=== PATIENT | male | born 1965 | race Caucasian/White ===

== ENCOUNTER 2018-02-07 14:27 | Emergency (ER) | END 2018-02-07 20:46 | disposition home or self-care (01) ==

== ENCOUNTER 2018-09-16 21:28 | Emergency (ER) | payer OTHER ==
[~2018-09-16] VITALS: Ht 193 cm; Wt 204.0 kg
[~2018-09-16 21:28] MED LIST: ACET500C5 PO; BACTDS PO; CEPH-443 PO
[2018-09-16 21:41] VITALS: Ht 193 cm; Wt 204.0 kg
[2018-09-16] MEDS ORDERED: ONDANSETRON 4 MG INJ IV STA (22:28)
[2018-09-16] MEDS ORDERED: morphine 4 MG/ML VIAL IV STA (22:28)
[2018-09-16] MEDS ORDERED: SOD CHLORIDE 0.9% 500 ML IV STA (22:28)
[2018-09-17] MEDS ORDERED: HYDROmorphONE 0.5 MG/0.5 ML SYG IV STA (00:10)
--- NOTE | 2018-09-17 00:53 | ERD ---
ER Documentation Chief Complaint Chief Complaint FLANK PAIN WITH HEMATURIA AND PENILE DISCHARGE X 2 DAYS HPI 53-year-old male with flank pain with hematuria for the past 2 days. No nausea vomiting or chills. Pain is mild to moderate intensity. Pain is colicky in nature. No other current complaints. Patient does have history of previous kidney stones and says this feels very similar to previous history of kidney stones. Denies any other current issues ROS All systems reviewed and are negative except as per history of present illness. Medications Home Meds Active Scripts Acetaminophen* (Tylophen*) 500 Mg Capsule, 1 CAP PO Q6H PRN for PAIN AND OR ELEVATED TEMP, #20 CAP Prov:TRACEY LOCKETT. TREASURER 02/07/18 Cephalexin* (Keflex*) 500 Mg Capsule, 500 MG PO QID for 7 Days, CAP Prov:EILEEN JOHNSONP S. 07/25/14 Sulfamethoxazole-Trimethoprim* (Bactrim* DS) 800-160 Mg Tab, 1 TAB PO BID for 7 Days, TAB Prov:ROSELIA JOHNSON S. 07/25/14 Allergies Allergies: Coded Allergies: ibuprofen (Verified Allergy, Mild, rash, redness all over the body, 07/24/14) vancomycin (Unverified Allergy, Mild, rash and itching, 07/24/14) PMhx/Soc History of Surgery: No Anesthesia Reaction: No Hx Neurological Disorder: No Hx Respiratory Disorders: Yes (asthma) Hx Cardiac Disorders: No Hx Psychiatric Problems: No Hx Miscellaneous Medical Probl: No Hx Alcohol Use: No Hx Substance Use: No (marijuana former use) Hx Tobacco Use: No Smoking Status: Never smoker Physical Exam Vitals Vital Signs Date Temp Pulse Resp B/P (MAP) Pulse Ox O2 O2 Flow FiO2 Time Delivery Rate 09/16/18 99.0 100 18 168/100 98 21:41 (122) Physical Exam Const: No acute distress Head: Atraumatic Eyes: Normal Conjunctiva ENT: Normal External Ears, Nose and Mouth. Neck: Full range of motion. No meningismus. Resp: Clear to auscultation bilaterally Cardio: Regular rate and rhythm, no murmurs Abd: Soft, non tender, non distended. Normal bowel sounds Skin: No petechiae or rashes Back: No midline or flank tenderness Ext: No cyanosis, or edema Neur: Awake and alert Psych: Normal Mood and Affect Result Diagram: 09/16/18223109/16/182232 Results 24 hrs Laboratory Tests Test 09/16/18 22:32 09/16/18 22:33 09/16/18 22:44 White Blood Count 9.0 10^3/ul Red Blood Count 4.50 10^6/ul Hemoglobin 13.1 g/dl Hematocrit 43.0 % Mean Corpuscular Volume 95.6 fl Mean Corpuscular Hemoglobin 29.1 pg Mean Corpuscular 30.5 g/dl Hemoglobin Concent Red Cell Distribution Width 13.3 % Platelet Count 158 10^3/UL Mean Platelet Volume 11.8 fl Immature Granulocytes % 0.600 % Neutrophils % 69.4 % Lymphocytes % 16.4 % Monocytes % 9.3 % Eosinophils % 3.9 % Basophils % 0.4 % Nucleated Red Blood Cells % 0.0 /100WBC Immature Granulocytes # 0.050 10^3/ul Neutrophils # 6.2 10^3/ul Lymphocytes # 1.5 10^3/ul Monocytes # 0.8 10^3/ul Eosinophils # 0.4 10^3/ul Basophils # 0.0 10^3/ul Nucleated Red Blood Cells # 0.0 10^3/ul Sodium Level 138 mmol/L Potassium Level 5.0 mmol/L Chloride Level 87 mmol/L Carbon Dioxide Level 39 mmol/L Anion Gap 12 Blood Urea Nitrogen 19 mg/dl Creatinine 0.99 mg/dl Est Glomerular Filtrat > 60 mL/min Rate mL/min Glucose Level 124 mg/dl Calcium Level 9.1 mg/dl Total Bilirubin 0.1 mg/dl Direct Bilirubin 0.00 mg/dl Indirect Bilirubin 0.1 mg/dl Aspartate Amino 15 IU/L Transf (AST/SGOT) Alanine 10 IU/L Aminotransferase (ALT/SGPT) Alkaline Phosphatase 44 IU/L Total Protein 7.7 g/dl Albumin 3.8 g/dl Globulin 3.90 g/dl Albumin/Globulin Ratio 0.97 Lipase 85 U/L Urine Color YELLOW Urine Clarity SLIGHTLY CLOUDY Urine pH 6.0 Urine Specific Hansen 1.018 Urine Ketones NEGATIVE mg/dL Urine Nitrite NEGATIVE mg/dL Urine Bilirubin NEGATIVE mg/dL Urine Urobilinogen NEGATIVE mg/dL Urine Leukocyte Esterase TRACE Valeria/ul Urine Microscopic RBC > 182 /HPF Urine Microscopic WBC 7 /HPF Urine Squamous Epithelial Cells FEW /HPF Urine Bacteria FEW /HPF Urine Hemoglobin 3+ mg/dL Urine Glucose NEGATIVE mg/dL Urine Total Protein 1+ mg/dl Current Medications Medications Dose Sig/Jesus Alberto Start Time Status Last (Trade) Ordered Route PRN Stop Time Admin Dose Reason Admin Sodium 500 ml @ Q1H STAT 09/16/18 DC 09/16/18 Chloride 500 mls/hr IV 22:28 22:39 09/16/18 23:27 Morphine 4 mg ONCE STAT 09/16/18 DC 09/16/18 Sulfate IV 22:28 22:35 (morphine) 09/16/18 22:31 Ondansetron 4 mg ONCE STAT 09/16/18 DC 09/16/18 HCl (Zofran IV 22:28 22:34 Inj) 09/16/18 22:31 1 mg ONCE STAT 09/17/18 DC 09/17/18 Hydromorphone IV 00:10 00:15 HCl 09/17/18 00:11 (Dilaudid) Procedures/MDM Medical decision make: 53-year-old male with flank pain. He does have evidence of urolithiasis. No evidence of severe blockage. At this point clinically stable. Will be discharged home with pain medication and nausea medication. Will also be given a short course of antibiotics for coverage. Told to return in 8 hours for serial abdominal exams to which the patient agrees. Otherwise follow-up with urologist as an outpatient. Departure Diagnosis: Primary Impression: Flank pain Additional Impression: Kidney stone Condition: Stable ENDER MRATIN Sep 17, 2018 00:53
[2018-09-17] MEDS ORDERED: TRAM50TA2 PO (01:05)
[2018-09-17] MEDS ORDERED: CEPH-443 PO (01:05)
[2018-09-17 01:46] VITALS: BP 110/54; PULSE 63; RESP 16
[2018-09-17] MEDS ORDERED: HYDROCODONE/APAP (10/325) TAB PO ONE (02:00)
[2018-09-17] MEDS ORDERED: FURO-110 PO (08:12)
[2018-09-17] MEDS ORDERED: LISI40TA3 PO (08:12)
[2018-09-17] MEDS ORDERED: ACET325T33 PO (08:12)
[2018-09-17] MEDS ORDERED: FAMO-95 PO (08:12)
[2018-09-18] MEDS ORDERED: PSYL575P4 PO (02:19)
== END 2018-09-17 01:46 | disposition home or self-care (01) ==
LOC: E/R 21:28
DX: N20.0 Calculus of kidney (principal); R40.2142 Coma scale, eyes open, spontaneous, at arrival to emergency department; R40.2362 Coma scale, best motor response, obeys commands, at arrival to emergency department; R40.2252 Coma scale, best verbal response, oriented, at arrival to emergency department; J45.909 Unspecified asthma, uncomplicated
CPT/HCPCS: 36415; 74176; 80053; 81001; 83690; 85025; 87086; 96361; 96374; 96375; J1170; J2270; J2405; J7040; Z7502; Z7610

== ENCOUNTER 2018-09-17 06:11 | Emergency (ER) | payer OTHER ==
[~2018-09-17] VITALS: Ht 165.1 cm; Wt 159.0 kg
[~2018-09-17 06:11] MED LIST changes: +TRAM50TA2 PO
[2018-09-17 06:20] VITALS: Ht 165.1 cm; Wt 159.0 kg
[2018-09-17] MEDS ORDERED: LISI40TA3 PO (08:12)
[2018-09-17] MEDS ORDERED: FURO-110 PO (08:12)
[2018-09-17] MEDS ORDERED: ACET325T33 PO (08:12)
[2018-09-17] MEDS ORDERED: FAMO-95 PO (08:12)
--- NOTE | 2018-09-17 08:39 | ERD ---
ER Documentation Chief Complaint Chief Complaint HEMATURIA X TODAY HPI This is a 53-year-old male who was just discharged from the ER a few hours ago who is back for gross hematuria again. The patient states that his initial visit with us due to one episode of gross hematuria without any abdominal or flank pain. He had a CAT scan which showed 1 mm bilateral stones inside the kidneys but nothing in the ureters. The patient said he went home and urinated gross blood again so he is back again. He again had no pain. He states that no prior history of kidney stones or hematuria. No dysuria no fever no abdominal pain ROS All systems reviewed and are negative except as per history of present illness. Medications Home Meds Active Scripts Tramadol HCl (Tramadol HCl) 50 Mg Tablet, 50 MG PO Q4 PRN for PAIN, #20 TAB Prov:ENDER MARTIN S. 09/17/18 Cephalexin* (Keflex*) 500 Mg Capsule, 500 MG PO QID for 5 Days, CAP Prov:ENDER MARTIN S. 09/17/18 Acetaminophen* (Tylophen*) 500 Mg Capsule, 1 CAP PO Q6H PRN for PAIN AND OR ELEVATED TEMP, #20 CAP Prov:TRACEY LOCKETT BAND MANAGER 02/07/18 Cephalexin* (Keflex*) 500 Mg Capsule, 500 MG PO QID for 7 Days, CAP Prov:ROSELIA JOHNSON S. 07/25/14 Sulfamethoxazole-Trimethoprim* (Bactrim* DS) 800-160 Mg Tab, 1 TAB PO BID for 7 Days, TAB Prov:ROSELIA JOHNSON S. 07/25/14 Reported Medications Famotidine* (Pepcid* AC) 20 Mg Tablet, 20 MG PO DAILY, #30 TAB 09/17/18 Acetaminophen* (Tylenol*) 325 Mg Tablet, 650 MG PO Q4H PRN for MILD PAIN LEVEL 1-3, TAB 09/17/18 Lisinopril* (Lisinopril*) 40 Mg Tablet, 40 MG PO DAILY, #30 TAB 09/17/18 Furosemide* (Lasix*) 20 Mg Tablet, 60 MG PO DAILY, TAB 09/17/18 Allergies Allergies: Coded Allergies: ibuprofen (Verified Allergy, Mild, rash, redness all over the body, 09/17/18) vancomycin (Unverified Allergy, Mild, rash and itching, 09/17/18) PMhx/Soc History of Surgery: Yes (wrist) Anesthesia Reaction: No Hx Neurological Disorder: No Hx Respiratory Disorders: Yes (asthma) Hx Cardiac Disorders: Yes (htn) Hx Psychiatric Problems: No Hx Miscellaneous Medical Probl: No Hx Alcohol Use: No Hx Substance Use: No (marijuana former use) Hx Tobacco Use: No FmHx Family History: No coronary disease Physical Exam Vitals Vital Signs Date Temp Pulse Resp B/P (MAP) Pulse Ox O2 O2 Flow FiO2 Time Delivery Rate 09/17/18 97.7 61 15 97/53 (68) 91 06:20 Physical Exam Const: Well-developed, well-nourished Head: Atraumatic, normocephalic Eyes: Normal Conjunctiva, PERRLA, EOMI, normal sclera, no nystagmus ENT: Normal External Ears, Nose and Mouth, moist mucus membranes. Neck: Full range of motion. No meningismus, no lymphadenopathy. Resp: Clear to auscultation bilaterally, no wheezing, rhonchi, rales Cardio: Regular rate and rhythm, no murmurs, S1 S2 present Abd: Soft, non tender x 4, non distended. Normal bowel sounds, no guarding or rebound, no pulsitile abdominal masses or bruits Skin: No petechiae or rashes, no ecchymosis , no maculopapular rash Back: No midline or flank tenderness Ext: No cyanosis, or edema, FROM x 4, normal inspection, neurovascularly intact x 4 Neur: Awake and alert, STR 5/5 x 4, sensation intact x 4, no focal findings, cerebellum intact Psych: Normal Mood and Affect Procedures/MDM I reviewed the patient's CAT scan from a few hours ago and there are 1 mm bilateral intrarenal stones but no ureterolithiasis. I reviewed his labs which were unremarkable, he did have urinalysis with 182 red cells and 7 white cellshe was given an antibiotic discharge A Simon catheter was placed here and there is a small amount of gross blood initially but we did a bladder irrigation and it cleared relatively quickly. Currently he has completely clear urinary output Discussed with him that he needs to take the antibiotic and needs to follow-up with your with urologist for gross hematuria gave him warning signs to return Patient feels much better at this time, and vital signs are normal, symptoms have improved. I did give strict instructions to return to the ED if symptoms continue or worsen, patient will otherwise follow-up with primary care physician. Patient understood instructions and agreed to plan. Disclaimer: Inadvertent spelling and grammatical errors are likely due to EHR/dictation software use and do not reflect on the overall quality of patient care. Also, please note that the electronic time recorded on this note does not necessarily reflect the actual time of the patient encounter. Departure Diagnosis: Primary Impression: Hematuria Hematuria type: unspecified type Qualified Codes: R31.9 - Hematuria, unspecified Condition: Stable Patient Instructions: Hematuria Referrals: [facility] (PCP) MARY RAE DO Sep 17, 2018 08:39
[2018-09-17 10:04] VITALS: BP 125/78; PULSE 68; RESP 17
[2018-09-18] MEDS ORDERED: PSYL575P4 PO (02:19)
== END 2018-09-17 10:05 | disposition home or self-care (01) ==
LOC: E/R 06:11
DX: R31.9 Hematuria, unspecified (principal); I10 Essential (primary) hypertension; J45.909 Unspecified asthma, uncomplicated
CPT/HCPCS: 51702; Z7502

== ENCOUNTER 2018-09-17 14:14 | Inpatient (IN) | payer OTHER ==
[~2018-09-17] VITALS: Ht 188 cm; Wt 209.7 kg
[~2018-09-17 14:14] MED LIST changes: +ACET325T33 PO; +FAMO-95 PO; +FURO-110 PO; +LISI40TA3 PO
--- NOTE | 2018-09-17 17:31 | ERD ---
ER Documentation Chief Complaint Chief Complaint Complains of bleeding ferom his penis since last night HPI 53-year-old gentleman who presents to the emergency room complaining of gross hematuria. This is the patient's third visit in less than 24 hours for similar symptoms. The patient most recently had a Simon catheter placed without significant bleeding. The patient denies any fevers or chills but he states persistent gross hematuria. He denies any fevers chills chest pain or shortness of breath. Patient has baseline oxygen requirement at home. ROS All systems reviewed and are negative except as per history of present illness. Medications Home Meds Active Scripts Tramadol HCl (Tramadol HCl) 50 Mg Tablet, 50 MG PO Q4 PRN for PAIN, #20 TAB Prov:ENDER MARTIN S. 09/17/18 Cephalexin* (Keflex*) 500 Mg Capsule, 500 MG PO QID for 5 Days, CAP Prov:ENDER MARTIN S. 09/17/18 Acetaminophen* (Tylophen*) 500 Mg Capsule, 1 CAP PO Q6H PRN for PAIN AND OR ELEVATED TEMP, #20 CAP Prov:TRACEY LOCKETT [employer]AG[employer] SETTER 02/07/18 Cephalexin* (Keflex*) 500 Mg Capsule, 500 MG PO QID for 7 Days, CAP Prov:ROSELIA JOHNSON S. 07/25/14 Sulfamethoxazole-Trimethoprim* (Bactrim* DS) 800-160 Mg Tab, 1 TAB PO BID for 7 Days, TAB Prov:ROSELIA JOHNSON S. 07/25/14 Reported Medications Famotidine* (Pepcid* AC) 20 Mg Tablet, 20 MG PO DAILY, #30 TAB 09/17/18 Acetaminophen* (Tylenol*) 325 Mg Tablet, 650 MG PO Q4H PRN for MILD PAIN LEVEL 1-3, TAB 09/17/18 Lisinopril* (Lisinopril*) 40 Mg Tablet, 40 MG PO DAILY, #30 TAB 09/17/18 Furosemide* (Lasix*) 20 Mg Tablet, 60 MG PO DAILY, TAB 09/17/18 Allergies Allergies: Coded Allergies: ibuprofen (Verified Allergy, Mild, rash, redness all over the body, 09/17/18) vancomycin (Unverified Allergy, Mild, rash and itching, 09/17/18) PMhx/Soc History of Surgery: Yes (wrist) Anesthesia Reaction: No Hx Neurological Disorder: No Hx Respiratory Disorders: Yes (asthma) Hx Cardiac Disorders: Yes (htn) Hx Psychiatric Problems: No Hx Miscellaneous Medical Probl: No Hx Alcohol Use: No Hx Substance Use: No (marijuana former use) Hx Tobacco Use: No Smoking Status: Never smoker FmHx Family History: No diabetes Physical Exam Vitals Vital Signs Date Temp Pulse Resp B/P (MAP) Pulse Ox O2 O2 Flow FiO2 Time Delivery Rate 09/17/18 97.0 73 20 138/70 90 14:17 (92) Physical Exam General: Well developed, well nourished, no acute distress Head: Normocephalic, atraumatic. Eyes: Pupils equally reactive, EOM intact ENT: Moist mucous membranes Neck: Supple, no lymphadenopathy Respiratory: Lungs clear bilaterally, no distress Cardiovascular: RRR, no murmurs, rubs, or gallops Abdominal: Soft, non-tender, non-distended, no peritoneal signs : External male genitalia without evidence of active hemorrhage from the meatus MSK: No edema, no unilateral swelling, 5/5 strength Neurologic: Alert and oriented, moving all extremities, normal speech, no focal weakness, no cerebellar signs Skin: No rash Psych: Normal mood Result Diagram: 09/17/18 1633 09/17/18 1633 Results 24 hrs Laboratory Tests Test 09/17/18 16:33 White Blood Count 7.9 10^3/ul Red Blood Count 4.24 10^6/ul Hemoglobin 12.5 g/dl Hematocrit 40.7 % Mean Corpuscular Volume 96.0 fl Mean Corpuscular Hemoglobin 29.5 pg Mean Corpuscular Hemoglobin Concent 30.7 g/dl Red Cell Distribution Width 13.6 % Platelet Count 154 10^3/UL Mean Platelet Volume 11.8 fl Immature Granulocytes % 0.400 % Neutrophils % 77.9 % Lymphocytes % 11.2 % Monocytes % 7.4 % Eosinophils % 2.7 % Basophils % 0.4 % Nucleated Red Blood Cells % 0.0 /100WBC Immature Granulocytes # 0.030 10^3/ul Neutrophils # 6.1 10^3/ul Lymphocytes # 0.9 10^3/ul Monocytes # 0.6 10^3/ul Eosinophils # 0.2 10^3/ul Basophils # 0.0 10^3/ul Nucleated Red Blood Cells # 0.0 10^3/ul Prothrombin Time 12.1 Sec Prothrombin Time Ratio 0.9 INR International Normalized Ratio 0.89 Activated Partial Thromboplast Time 25.0 Sec Sodium Level 136 mmol/L Potassium Level 5.0 mmol/L Chloride Level 89 mmol/L Carbon Dioxide Level 37 mmol/L Anion Gap 10 Blood Urea Nitrogen 29 mg/dl Creatinine 1.13 mg/dl Est Glomerular Filtrat Rate mL/min > 60 mL/min Glucose Level 138 mg/dl Calcium Level 8.6 mg/dl Procedures/MDM LAB INTERPRETATION: I reviewed the laboratory testing and it shows [no evidence of acute process] MEDICAL DECISION MAKING: This is not the patient's third visit for gross hematuria. Unclear etiology at this time. Consideration must be of potential bladder malignancy. Patient is refusing Simon catheter at this time but has no evidence of obstructive process. He had a Simon catheter placed just hours prior to arrival without significant gross hematuria. I spoke to Dr. Goss, on-call urologist who recommends hospitalization for cystoscopy to rule out bladder malignancy. The patient's most recent urinalysis was not convincing for urinary tract infection. Culture monitoring is appropriate. I will hold on empiric antibiotics. ER COURSE: * Patient refused Simon catheter. He is hemodynamically stable. He will be admitted for further management. CONSULTATION: Urology: Dr. Goss DISPOSITION PLAN: medical surgical admission for gross hematuria that is persistent with failed outpatient management. Accepting care team and consultations: I discussed the current laboratory data, diagnostic imaging and emergency care provided. Admitting team: Dr. Jimenez Admitting team indication: Insurance directed Departure Diagnosis: Primary Impression: Hematuria Hematuria type: gross Qualified Codes: R31.0 - Gross hematuria Additional Impression: Morbid obesity Condition: Stable JOHNY PAGE MD Sep 17, 2018 17:31
[2018-09-17] MEDS ORDERED: ACETAMINOPHEN 325 MG TAB PO PRN ×2 (18:00→19:30)
[2018-09-17] MEDS ORDERED: ONDANSETRON 4 MG INJ IV PRN (18:00)
--- NOTE | 2018-09-17 19:15 | CONS ---
Assessment/Plan Assessment/Plan Hospital Course (Demo Recall) 53-year-old male, morbidly obese, weighs 450 pounds, presented to the emergency room 2 days ago with gross hematuria and was discharged home to return again with the same problem yesterday and again he was discharged after he had a Simon catheter inserted at the bladder irrigated. He returned again today because of the gross hematuria. Patient states that it was painful when he had the h ematuria. He denies any similar problem in the past. He denies any urgency or urgency incontinence. His gross hematuria could be related to urinary tract infection since he was having pain with the hematuria. It could also be from a bladder tumor. Unfortunately in the past 2 days no urine culture was done to document any infection. Therefore for now we will do a stat urine culture and sensitivity also send urine for cytology and I may have to do a cystoscopy to check for any bladder tumor and if there is one resect it. Consultation Date/Type/Reason Admit Date/Time September 17, 2018 Date of Consultation: Sep 17, 2018 Type of Consult Urology Reason for Consultation Gross hematuria Requesting Provider: JOHNY PAGE MD Date/Time of Note DATE: 09/17/18 TIME: 19:04 Hx of Present Illness 53-year-old male, morbidly obese, weighs 450 pounds, presented to the emergency room 2 days ago with gross hematuria and was discharged home to return again with the same problem yesterday and again he was discharged after he had a Simon catheter inserted at the bladder irrigated. He returned again today because of the gross hematuria. Patient states that it was painful when he had the hematuria. He denies any similar problem in the past. He denies any urgency or urgency incontinence. Constitutional: no complaints Eyes: no complaints ENT: no complaints Respiratory: No wheezing Cardiovascular: No chest pain Gastrointestinal: No nausea, No vomiting Genitourinary: dysuria (Sometime), hematuria Musculoskeletal: back pain Skin: erythema (Lower extremities) Neurologic: no complaints Psychological: depression (In the past) Immunologic: no complaints Past Medical History Medical History: hypertension Home Meds Active Scripts Tramadol HCl (Tramadol HCl) 50 Mg Tablet, 50 MG PO Q4 PRN for PAIN, #20 TAB Prov:ENDER MARTIN 09/17/18 Cephalexin* (Keflex*) 500 Mg Capsule, 500 MG PO QID for 5 Days, CAP Prov:ENDER MARTIN S. 09/17/18 Acetaminophen* (Tylophen*) 500 Mg Capsule, 1 CAP PO Q6H PRN for PAIN AND OR ELEVATED TEMP, #20 CAP Prov:TRACEY LOCKETT [employer]ING [employer]ING BASTER 02/07/18 Cephalexin* (Keflex*) 500 Mg Capsule, 500 MG PO QID for 7 Days, CAP Prov:ROSELIA JOHNSON S. 07/25/14 Sulfamethoxazole-Trimethoprim* (Bactrim* DS) 800-160 Mg Tab, 1 TAB PO BID for 7 Days, TAB Prov:RAZABRINA BHAKTAEEP S. 07/25/14 Reported Medications Famotidine* (Pepcid* AC) 20 Mg Tablet, 20 MG PO DAILY, #30 TAB 09/17/18 Acetaminophen* (Tylenol*) 325 Mg Tablet, 650 MG PO Q4H PRN for MILD PAIN LEVEL 1 -3, TAB 09/17/18 Lisinopril* (Lisinopril*) 40 Mg Tablet, 40 MG PO DAILY, #30 TAB 09/17/18 Furosemide* (Lasix*) 20 Mg Tablet, 60 MG PO DAILY, TAB 09/17/18 Medications Current Medications Ondansetron HCl (Zofran Inj) 4 mg BRIDGE ORDER PRN IV NAUSEA/VOMITING; Start 09/17/18 at 18:00; Stop 09/18/18 at 17:59 Acetaminophen (Tylenol Tab) 650 mg ER BRIDGE PRN PO .MILD PAIN 1-3 OR TEMP; Start 09/17/18 at 18:00; Stop 09/18/18 at 17:59 Allergies: Coded Allergies: ibuprofen (Verified Allergy, Mild, rash, redness all over the body, 09/17/18) vancomycin (Unverified Allergy, Mild, rash and itching, 09/17/18) Past Surgical History Past Surgical Hx: no surgical history Social History Alcohol Use: occasionally Smoking Status: Former smoker (At the young age. Stopped a long time ago) Drug Use: marijuana (Sometime) Exam/Review of Systems Exam Vitals Vital Signs Date Temp Pulse Resp B/P (MAP) Pulse Ox O2 O2 Flow FiO2 Time Delivery Rate 09/17/18 78 22 117/58 98 Nasal 5.0 17:52 (77) Cannula 09/17/18 97.0 14:17 Constitutional: alert, oriented Psych: no complaints Head: normocephalic Eyes: nl conjunctiva ENMT: nl external ears & nose Neck: supple Respiratory: normal air movement; No wheezing Gastrointestinal: soft, other (Very obese abdomen) Genitourinary - Male: nl penis, nl scrotum Musculoskeletal: swelling (Of lower extremities with erythema) Extremities: edema; No calf tenderness Neurological: nl mental status Skin: nl turgor Results Result Diagram: 09/17/18 1633 09/17/18 1633 Results 24hrs Laboratory Tests Test 09/17/18 16:33 White Blood Count 7.9 Red Blood Count 4.24 L Hemoglobin 12.5 L Hematocrit 40.7 L Mean Corpuscular Volume 96.0 Mean Corpuscular Hemoglobin 29.5 Mean Corpuscular Hemoglobin Concent 30.7 L Red Cell Distribution Width 13.6 Platelet Count 154 Mean Platelet Volume 11.8 H Immature Granulocytes % 0.400 Neutrophils % 77.9 H Lymphocytes % 11.2 L Monocytes % 7.4 Eosinophils % 2.7 Basophils % 0.4 Nucleated Red Blood Cells % 0.0 Immature Granulocytes # 0.030 Neutrophils # 6.1 Lymphocytes # 0.9 Monocytes # 0.6 Eosinophils # 0.2 Basophils # 0.0 Nucleated Red Blood Cells # 0.0 Prothrombin Time 12.1 Prothrombin Time Ratio 0.9 INR International Normalized Ratio 0.89 Activated Partial Thromboplast Time 25.0 Sodium Level 136 Potassium Level 5.0 Chloride Level 89 L Carbon Dioxide Level 37 H Anion Gap 10 Blood Urea Nitrogen 29 H Creatinine 1.13 Est Glomerular Filtrat Rate mL/min > 60 Glucose Level 138 Calcium Level 8.[address] scan of the abdomen and pelvis: 1. There are tiny 1 mm bilateral lower pole renal calculi without evidence for hydronephrosis. 2. Diverticulosis of the distal colon without evidence for diverticulitis. 3. Diastases of the rectus abdominis muscles with a fat-containing umbilical hernia. 4. The gallbladder is contracted but otherwise unremarkable. 5. The appendix is within normal limits. 6. Mild bibasilar lower lobe and lingular subsegmental atelectasis. 7. Degenerative enthesopathy of the thoracolumbar spine. Medications Medication Current Medications Ondansetron HCl (Zofran Inj) 4 mg BRIDGE ORDER PRN IV NAUSEA/VOMITING; Start 09/17/18 at 18:00; Stop 09/18/18 at 17:59 Acetaminophen (Tylenol Tab) 650 mg ER BRIDGE PRN PO .MILD PAIN 1-3 OR TEMP; Start 09/17/18 at 18:00; Stop 09/18/18 at 17:59 KENYON LÓPEZ MD Sep 17, 2018 19:15
--- NOTE | 2018-09-17 19:23 | HP ---
Date/Time of Note Date/Time of Note DATE: 09/17/18 TIME: 19:19 Assessment/Plan VTE Prophylaxis Pharmacological prophylaxis: heparin Lines/Catheters IV Catheter Type (from Nrs): Saline Lock Assessment/Plan Hospital Course 53 yo male with morbid obesity, chronic respiratory failure on home O2 (unclear etiology) who presents with hematuria Hematuria: - Will obtain UA/UC and empirically treat possible UTI for now - Cystoscopy per Dr Goss Morbid obesity Chronic diastolic CHF: - Appears overloaded, will give IV lasix Chronic hypoxic respiratory failure: - Unclear etiology. Per patient no diagnosis of emphysema. He has been told it is due to his weigh so suspect OHS? Discharge pending workup Result Diagram: 09/17/18 1633 09/17/18 1633 Results 24hrs Laboratory Tests Test 09/17/18 16:33 09/17/18 19:11 White Blood Count 7.9 Red Blood Count 4.24 L Hemoglobin 12.5 L Hematocrit 40.7 L Mean Corpuscular Volume 96.0 Mean Corpuscular Hemoglobin 29.5 Mean Corpuscular Hemoglobin Concent 30.7 L Red Cell Distribution Width 13.6 Platelet Count 154 Mean Platelet Volume 11.8 H Immature Granulocytes % 0.400 Neutrophils % 77.9 H Lymphocytes % 11.2 L Monocytes % 7.4 Eosinophils % 2.7 Basophils % 0.4 Nucleated Red Blood Cells % 0.0 Immature Granulocytes # 0.030 Neutrophils # 6.1 Lymphocytes # 0.9 Monocytes # 0.6 Eosinophils # 0.2 Basophils # 0.0 Nucleated Red Blood Cells # 0.0 Prothrombin Time 12.1 Prothrombin Time Ratio 0.9 INR International Normalized Ratio 0.89 Activated Partial Thromboplast Time 25.0 Sodium Level 136 Potassium Level 5.0 Chloride Level 89 L Carbon Dioxide Level 37 H Anion Gap 10 Blood Urea Nitrogen 29 H Creatinine 1.13 Est Glomerular Filtrat Rate mL/min > 60 Glucose Level 138 Calcium Level 8.6 Bedside Urine pH (LAB) 5.5 Bedside Urine Protein (LAB) Negative Bedside Urine Glucose (UA) Negative Bedside Urine Ketones (LAB) Negative Bedside Urine Blood 1+ H Bedside Urine Nitrite (LAB) Negative Bedside Urine Leukocyte Esterase (L Trace H HPI/ROS Admit Date/Time Admit Date/Time September 17, 2018 Hx of Present Illness 53 yo male with morbid obestiy, chornic hypoxic respiratory failure (on continuous oxygen with unclear diagonsis), chornic CHF who presnts wtih hematuria Patient has been to ED three times over past day for hematuria. CT shows small stones. Discharged from ED. No UC or UA performed. Reports some dysuria. Feels dizzy with urinating. Denies difficulty passing urine. ROS Constitutional: no complaints, improved Eyes: no complaints ENT: no complaints Respiratory: no complaints Cardiovascular: no complaints Gastrointestinal: no complaints Genitourinary: no complaints Musculoskeletal: no complaints Skin: no complaints Neurologic: no complaints Endocrine: no complaints Lymphatic: no complaints Psychological: no complaints, nl mood/affect Immunologic: no complaints PMH/Family/Social Past Medical History Obesity Chronic respiratory failure Medical History: hypertension Medications Current Medications Ondansetron HCl (Zofran Inj) 4 mg BRIDGE ORDER PRN IV NAUSEA/VOMITING; Start 09/17/18 at 18:00; Stop 09/18/18 at 17:59 Acetaminophen (Tylenol Tab) 650 mg ER BRIDGE PRN PO .MILD PAIN 1-3 OR TEMP; Start 09/17/18 at 18:00; Stop 09/18/18 at 17:59 Coded Allergies: ibuprofen (Verified Allergy, Mild, rash, redness all over the body, 09/17/18) vancomycin (Unverified Allergy, Mild, rash and itching, 09/17/18) Past Surgical History Past Surgical Hx: no surgical history Family History Significant Family History: no pertinent family hx Social History Alcohol Use: none Smoking Status: Former smoker (At the young age. Stopped a long time ago) Drug Use: none, marijuana (Sometime) Exam/Review of Systems Vital Signs Vitals Vital Signs Date Temp Pulse Resp B/P (MAP) Pulse Ox O2 O2 Flow FiO2 Time Delivery Rate 09/17/18 78 22 117/58 98 Nasal 5.0 17:52 (77) Cannula 09/17/18 97.0 14:17 Exam Exam Morbid obesity resting comfortably + JVD Breathing comfortably RRR Obese abdomen Pitting edema bilaterally STEVEN LARSON MD Sep 17, 2018 19:23
[2018-09-17] MEDS ORDERED: NACL 0.9% 3 ML SYG IV SCH (19:30)
[2018-09-17 20:11] VITALS: BP 141/65; PULSE 72; RESP 18
[2018-09-17] MEDS: FUROSEMIDE 100 MG INJ IV SCH (21:34)
[2018-09-18 01:40] VITALS: BP 105/51; PULSE 74; RESP 17
[2018-09-18] MEDS ORDERED: PSYL575P4 PO (02:19)
[2018-09-18] MEDS: FUROSEMIDE 100 MG INJ IV SCH (06:29)
[2018-09-18 07:30] VITALS: BP 127/57; PULSE 65; RESP 18
--- NOTE | 2018-09-18 08:45 | CONS ---
Consult Date/Type/Reason Admit Date/Time Sep 17, 2018 at 17:33 Initial Consult Date 09/17/18 Type of Consultation: Urology Reason for Consultation Hematuria Requesting Provider: JOHNY PAGE MD Date/Time of Note DATE: 09/18/18 TIME: 08:42 Subjective The patient is resting comfortably and sleeping. He has voided in the urinal at his bedside is full of clear urine. He was given Lasix last night Objective Vitals Vital Signs Date Temp Pulse Resp B/P (MAP) Pulse Ox O2 O2 Flow FiO2 Time Delivery Rate 09/18/18 98.3 65 18 127/57 93 Nasal 07:30 (80) Cannula 09/17/18 5.0 23:13 Intake and Output 09/17/18 09/17/18 09/18/18 1515:00 23:00 07:00 IntakeIntake Total 894 ml OutputOutput Total 2700 ml BalanceBalance -1806 ml Exam Very obese abdomen. Urine is now clear. Results/Medications Result Diagram: 09/18/18 0607 09/18/18 0607 Results 24 hrs Laboratory Tests Test 09/17/18 16:33 09/17/18 19:11 09/17/18 19:15 09/17/18 19:29 White Blood 7.9 Count Red Blood Count 4.24 L Hemoglobin 12.5 L Hematocrit 40.7 L Mean Corpuscular 96.0 Volume Mean Corpuscular 29.5 Hemoglobin Mean Corpuscular 30.7 L Hemoglobin Ruby nt Red Cell 13.6 Distribution Width Platelet Count 154 Mean Platelet 11.8 H Volume Immature 0.400 Granulocytes % Neutrophils % 77.9 H Lymphocytes % 11.2 L Monocytes % 7.4 Eosinophils % 2.7 Basophils % 0.4 Nucleated Red 0.0 Blood Cells % Immature 0.030 Granulocytes # Neutrophils # 6.1 Lymphocytes # 0.9 Monocytes # 0.6 Eosinophils # 0.2 Basophils # 0.0 Nucleated Red 0.0 Blood Cells # Prothrombin Time 12.1 Prothrombin Time 0.9 Ratio INR 0.89 International Normalized Ratio Activated 25.0 Partial Thrombop last Time Sodium Level 136 Potassium Level 5.0 Chloride Level 89 L Carbon Dioxide 37 H Level Anion Gap 10 Blood Urea 29 H Nitrogen Creatinine 1.13 Est Glomerular > 60 Filtrat Rate mL/min Glucose Level 138 Calcium Level 8.6 Bedside Urine pH 5.5 (LAB) Bedside Urine Negative Protein (LAB) Bedside Urine Negative Glucose (UA) Bedside Urine Negative Ketones (LAB) Bedside Urine 1+ H Blood Bedside Urine Negative Nitrite (LAB) Bedside Urine Trace H Leukocyte Estera se (L Urine Color YELLOW Urine Clarity SLIGHTLY CLOUDY A Urine pH 5.0 Urine Specific 1.015 [place] Urine Ketones NEGATIVE Urine Nitrite NEGATIVE Urine Bilirubin NEGATIVE Urine NEGATIVE Urobilinogen Urine Leukocyte TRACE A Esterase Urine 7 H Microscopic RBC Urine 14 H Microscopic WBC Urine Bacteria FEW A Urine Hemoglobin 2+ H Urine Glucose NEGATIVE Urine Total NEGATIVE Protein Blood Gas Blood arterial Specimen Source Arterial Blood 09/17/2018 8:30: Date Drawn 53 PM Arterial Blood 7.370 pH (Temp corrected) Arterial Blood 62.4 H pCO2 (Temp correct) Arterial Blood 74.2 L pO2 (Temp corrected) Arterial Blood 35.3 H HCO3 Arterial Blood 7.7 H Base Excess Arterial Blood 95.3 Oxygen Saturatio n Tomer Test ACCEPTAB Arterial Blood Right Radial Gas Puncture Site Arterial 0.8 Blood Carboxyhem oglobin Arterial Blood 0.2 Methemoglobin Blood Gas A-a O2 0.8 L Differential Oxyhemoglobin 94.3 Percent Blood Gas 37.0 Temperature Blood Gas Actual 20 Respiration Rate Blood Gas ROOM AIR Modality FiO2 21.0 Blood Gas MM Notified Whom Blood Gas 09/17/2018 8:39: Notified Time 27 PM Test 09/18/18 06:07 White Blood 6.6 Count Red Blood Count 4.19 L Hemoglobin 12.5 L Hematocrit 40.2 L Mean Corpuscular 95.9 Volume Mean Corpuscular 29.8 Hemoglobin Mean Corpuscular 31.1 L Hemoglobin Ruby nt Red Cell 13.5 Distribution Width Platelet Count 142 Mean Platelet 11.4 H Volume Immature 0.300 Granulocytes % Neutrophils % 70.3 Lymphocytes % 14.5 L Monocytes % 10.4 Eosinophils % 3.9 Basophils % 0.6 Nucleated Red 0.0 Blood Cells % Immature 0.020 Granulocytes # Neutrophils # 4.6 Lymphocytes # 1.0 Monocytes # 0.7 Eosinophils # 0.3 Basophils # 0.0 Nucleated Red 0.0 Blood Cells # Sodium Level 137 Potassium Level 5.0 Chloride Level 92 L Carbon Dioxide 44 *H Level Anion Gap 1 #L Blood Urea 23 H Nitrogen Creatinine 0.92 Est Glomerular > 60 Filtrat Rate mL/min Glucose Level 128 Calcium Level 8.6 Total Bilirubin 0.2 Direct Bilirubin 0.00 Indirect 0.2 Bilirubin Aspartate Amino 16 Transf (AST/SGOT ) Alanine 14 Aminotransferase (ALT/SGPT) Alkaline 45 Phosphatase Total Protein 6.8 Albumin 3.3 Globulin 3.50 H Albumin/Globulin 0.94 Ratio Home Meds Active Scripts Tramadol HCl (Tramadol HCl) 50 Mg Tablet, 50 MG PO Q4 PRN for PAIN, #20 TAB Prov:NATALYAENDER LOMELI S. 09/17/18 Cephalexin* (Keflex*) 500 Mg Capsule, 500 MG PO QID for 5 Days, CAP Prov:NATALYAHADAMGERMAINEENDER S. 09/17/18 Acetaminophen* (Tylophen*) 500 Mg Capsule, 1 CAP PO Q6H PRN for PAIN AND OR ELEVATED TEMP, #20 CAP Prov:TRACEY LOCKETT HOUSEKEEPING DIRECTOR 02/07/18 Cephalexin* (Keflex*) 500 Mg Capsule, 500 MG PO QID for 7 Days, CAP Prov:ROSELIA JOHNSON S. 07/25/14 Sulfamethoxazole-Trimethoprim* (Bactrim* DS) 800-160 Mg Tab, 1 TAB PO BID for 7 Days, TAB Prov:ROSELIA JOHNSON S. 07/25/14 Reported Medications Psyllium Seed (with Sugar) (Metamucil Powder) 575 Gm Powder, 575 GM PO DAILY PRN for CONSTIPATION 09/18/18 Famotidine* (Pepcid* AC) 20 Mg Tablet, 20 MG PO DAILY, #30 TAB 09/17/18 Acetaminophen* (Tylenol*) 325 Mg Tablet, 650 MG PO Q4H PRN for MILD PAIN LEVEL 1-3, TAB 09/17/18 Lisinopril* (Lisinopril*) 40 Mg Tablet, 40 MG PO DAILY, #30 TAB 09/17/18 Furosemide* (Lasix*) 20 Mg Tablet, 60 MG PO DAILY, TAB 09/17/18 Medications Current Medications IV Flush (NS 3 ml) 3 ml PER PROTOCOL IV ; Start 09/17/18 at 19:30 Acetaminophen/ Hydrocodone Bitart (Gays (5/325)) 2 tab Q6H PRN PO .SEVERE PAIN 7-10; Start 09/17/18 at 19:30 Acetaminophen (Tylenol Tab) 650 mg Q4H PRN PO MILD PAIN LEVEL 1-3; Start 09/17/18 at 19:30 Famotidine (Pepcid) 20 mg DAILY PO ; Start 09/18/18 at 09:00 Lisinopril (Zestril) 40 mg DAILY PO ; Start 09/18/18 at 09:00 Furosemide (Lasix) 60 mg BID DIURETICS IV Last administered on 09/18/18at 06:29; Admin Dose 60 MG; Start 09/17/18 at 19:30 Assessment/Plan Hospital Course (Demo Recall) 53-year-old male, morbidly obese, weighs 450 pounds, presented to the emergency room 2 days ago with gross hematuria and was discharged home to return again with the same problem yesterday and again he was discharged after he had a Simon catheter inserted at the bladder irrigated. He returned again on 09/17/2018 because of the gross hematuria. Patient states that it was painful when he had the hematuria. He denies any similar problem in the past. He denies any urgency or urgency incontinence. His gross hematuria could be related to urinary tract infection since he was having pain with the hematuria. It could also be from a bladder tumor. Unfortunately in the past 2 days no urine culture was done to document any infection. Urine culture was sent at the time of this admission and it is still pending. His urine now is all clear. Cytology is also pending. I would hold on doing the cystoscopy. Until we have the results of the cultures and then will decide whether to do the cystoscopy or not. KENYON LÓPEZ MD Sep 18, 2018 08:45
[2018-09-18] MEDS: FAMOTIDINE 20 MG TAB PO SCH (09:37)
[2018-09-18] MEDS: LISINOPRIL 20 MG TAB PO SCH (09:37)
[2018-09-18 09:47] VITALS: Ht 188 cm; Wt 209.7 kg
[2018-09-18 14:09] VITALS: BP 102/50; PULSE 68; RESP 18
--- NOTE | 2018-09-18 15:26 | RADRPT ---
Echocardiogram Report Patient Name: TAZ YUANPatient ID: [id number] : 06 (53y 8m)Study Date: 09/18/2018 9:42:56 AM Gender: MAccession #: [id number] Tech: Chinmay Omalley [facility] Location: [address] Ref.Physician: STEVEN LARSON Height(Cm): BSA: Weight(Kg): Quality: Technically Difficult StudyAccount #: Procedures: Echocardiographic Report: Transthoracic echocardiogram with complete 2D, M-Mode, and doppler examination. Indications: Congestive Heart Failure. Measurements: 2D/M Mode Doppler Measurement Value Normal Range Measurement Value Normal Range LVIDd 2D 6.0 [ 4.2 - 5.8 ] cm AV Peak Rodriguez 1.9 [ 100.0 - 170.0 ] cm/sec LVIDs 2D 3.4 [ 2.5 - 4.0 ] cm AV Peak PG 14.0 [ 2.0 - 9.0 ] mmHg LVPWd 2D 1.0 [ 0.6 - 1.0 ] cm LVOT Peak Rodriguez 1.4 [ 70.0 - 110.0 ] cm/sec IVSd 2D 1.0 [ 0.6 - 1.0 ] cm LVOT Peak PG 8.0 [ 2.0 - 6.0 ] mmHg AoR Diam 2D 3.6 [ 2.6 - 3.4 ] cm MV E Peak Rodriguez 0.7 [ 60.0 - 130.0 ] cm/sec EDV 2D 183.0 [ 62.0 - 150.0 ] ml MV A Peak Rodriguez 0.6 [ 100.0 - 120.0 ] cm/sec ESV 2D 47.1 [ 21.0 - 61.0 ] ml MV E/A 1.1 [ 0.8 - 1.5 ] ratio EF 2D 74.3 [ 52.0 - 72.0 ] percent MV Decel Time 278 [ 104 - 258 ] msec LA Dimen 2D 4.1 [ 3.0 - 4.0 ] cm Lat E` Rodriguez 0.2 [ 10.0 - 15.0 ] cm/sec Lateral E/E` 4.2 [ 1.0 - 2.0 ] ratio Med E` Rodriguez 0.1 cm/sec MV E/A 1.1 [ 0.8 - 1.5 ] ratio TR Peak Rodriguez 2.7 [ 100.0 - 280.0 ] cm/sec TR Peak PG 29.0 mmHg RVSP 32.0 [ 10.0 - 36.0 ] mmHg Findings: Left Ventricle: Normal left ventricular systolic function. Normal left ventricular wall thickness. Mild enlargement of left ventricle cavity. Ejection fraction is visually estimated at 55 %. Right Ventricle: Normal right ventricular size. Normal right ventricular systolic function. Left Atrium: There is mild enlargement of left atrium. Right Atrium: The right atrium is normal in size. Mitral Valve: Mild mitral leaflet calcification. Mild mitral annular calcification. Trace mitral regurgitation. Aortic Valve: No significant aortic stenosis or insufficiency. Aortic valve not well visualized. Tricuspid Valve: Normal appearance of the tricuspid valve. Estimated peak PA systolic pressure 32 mmHg. There is mild tricuspid regurgitation. Pulmonic Valve: Pulmonic valve not well visualized. Pericardium: Normal pericardium with no significant pericardial effusion. Aorta: Normal aortic root. IVC: Normal size and normal respiratory collapse consistent with normal right atrial pressure. Conclusions: Normal left ventricular systolic function. Normal left ventricular wall thickness. Mild enlargement of left ventricle cavity. Ejection fraction is visually estimated at 55 %. . Mild mitral leaflet calcification. Mild mitral annular calcification. Trace mitral regurgitation. Normal appearance of the tricuspid valve. Estimated peak PA systolic pressure 32 mmHg. There is mild tricuspid regurgitation. Electronically Signed By: Billy Johns 2018-09-18 15:25:57 PST
--- NOTE | 2018-09-18 17:18 | PSY ---
Date/Time of Note Date/Time of Note DATE: 09/18/18 TIME: 17:11 Psychiatric Subjective Eval Consent Pt consented to telemedicine: No Subjective Evaluation Patient location: inpatient Chief Complaint: Complains of bleeding ferom his penis since last night History of present illness Patient is a 53 yo male with morbid obesity, chronic respiratory failure.On a face to face evaluation, patient claims he has a history of depression but has not had medication for almost 30years. He denies suicdal ideation and contracted for safety, Patient claims he goes for therapy, but declined all psych medication Past psychiatric history Denies Hospitalization: other Medical history Problems Medical Problems: (1) Flank pain Status: Acute (2) Hematuria Status: Acute (3) Hematuria Status: Acute (4) Kidney stone Status: Acute (5) Morbid obesity Status: Acute (6) Pain due to dental caries Status: Acute Allergies: Coded Allergies: ibuprofen (Verified Allergy, Mild, rash, redness all over the body, 09/17/18) vancomycin (Unverified Allergy, Mild, rash and itching, 09/17/18) Substance Abuse Substance abuse history: No Prior substance abuse treatmen: No Social History Marital status: other DPA/Conservatorship: No Psychiatric Objective Eval Review of Systems: Review of Systems: Not Applicable Physical Examination: Physical Examination: Not Applicable Energy: Adequate Interest: Adequate Mental Status Examination: Appearance: Groomed Eye Contact: Good Psychomotor Activity: Normal Behavior: Cooperative Speech: Soft AFFECT: Constricted Mood: Anxious Though Process: Linear Orientation: x4 Insight: Intact Judgement: Intact Attention Span: Intact Laboratory Results Laboratory Tests Test 09/17/18 16:33 09/17/18 19:11 09/17/18 19:15 09/17/18 19:29 White Blood 7.9 10^3/ul Count Red Blood Count 4.24 10^6/ul Hemoglobin 12.5 g/dl Hematocrit 40.7 % Mean 96.0 fl Corpuscular Volume Mean 29.5 pg Corpuscular Hemoglobin Mean 30.7 g/dl Corpuscular Hemoglobin Conc ent Red Cell 13.6 % Distribution Width Platelet Count 154 10^3/UL Mean Platelet 11.8 fl Volume Immature 0.400 % Granulocytes % Neutrophils % 77.9 % Lymphocytes % 11.2 % Monocytes % 7.4 % Eosinophils % 2.7 % Basophils % 0.4 % Nucleated Red 0.0 /100WBC Blood Cells % Immature 0.030 10^3/ul Granulocytes # Neutrophils # 6.1 10^3/ul Lymphocytes # 0.9 10^3/ul Monocytes # 0.6 10^3/ul Eosinophils # 0.2 10^3/ul Basophils # 0.0 10^3/ul Nucleated Red 0.0 10^3/ul Blood Cells # Prothrombin 12.1 Sec Time Prothrombin 0.9 Time Ratio INR 0.89 International Normalized Rati o Activated 25.0 Sec Partial Thrombo plast Time Sodium Level 136 mmol/L Potassium Level 5.0 mmol/L Chloride Level 89 mmol/L Carbon Dioxide 37 mmol/L Level Anion Gap 10 Blood Urea 29 mg/dl Nitrogen Creatinine 1.13 mg/dl Est Glomerular > 60 mL/min Filtrat Rate mL/min Glucose Level 138 mg/dl Calcium Level 8.6 mg/dl Bedside Urine 5.5 pH (LAB) Bedside Urine Negative Protein (LAB) Bedside Urine Negative Glucose (UA) Bedside Urine Negative Ketones (LAB) Bedside Urine 1+ Blood Bedside Urine Negative Nitrite (LAB) Bedside Urine Trace Leukocyte Leydi ase (L Urine Color YELLOW Urine Clarity SLIGHTLY CLOUDY Urine pH 5.0 Urine Specific 1.015 [place] Urine Ketones NEGATIVE mg/dL Urine Nitrite NEGATIVE mg/dL Urine Bilirubin NEGATIVE mg/dL Urine NEGATIVE mg/dL Urobilinogen Urine Leukocyte TRACE Valeria/ul Esterase Urine 7 /HPF Microscopic RBC Urine 14 /HPF Microscopic WBC Urine Bacteria FEW /HPF Urine 2+ mg/dL Hemoglobin Urine Glucose NEGATIVE mg/dL Urine Total NEGATIVE mg/dl Protein Blood Gas Blood arterial Specimen Source Arterial Blood 09/17/2018 8:30: Date Drawn 53 PM Arterial Blood 7.370 pH (Temp corrected ) Arterial Blood 62.4 mmhg pCO2 (Temp correct) Arterial Blood 74.2 mmHG pO2 (Temp corrected ) Arterial Blood 35.3 mmol/L HCO3 Arterial Blood 7.7 mmol/L Base Excess Arterial Blood 95.3 mmHG Oxygen Saturati on Tomer Test ACCEPTAB Arterial Blood Right Radial Gas Puncture Site Arterial 0.8 % Blood Carboxyhe moglobin Arterial Blood 0.2 % Methemoglobin Blood Gas A-a 0.8 mmHg O2 Differential Oxyhemoglobin 94.3 % Percent Blood Gas 37.0 C Temperature Blood Gas 20 Actual Respiration Rat e Blood Gas ROOM AIR Modality FiO2 21.0 % Blood Gas MM Notified Whom Blood Gas 09/17/2018 8:39: Notified Time 27 PM Test 09/18/18 06:07 White Blood 6.6 10^3/ul Count Red Blood Count 4.19 10^6/ul Hemoglobin 12.5 g/dl Hematocrit 40.2 % Mean 95.9 fl Corpuscular Volume Mean 29.8 pg Corpuscular Hemoglobin Mean 31.1 g/dl Corpuscular Hemoglobin Conc ent Red Cell 13.5 % Distribution Width Platelet Count 142 10^3/UL Mean Platelet 11.4 fl Volume Immature 0.300 % Granulocytes % Neutrophils % 70.3 % Lymphocytes % 14.5 % Monocytes % 10.4 % Eosinophils % 3.9 % Basophils % 0.6 % Nucleated Red 0.0 /100WBC Blood Cells % Immature 0.020 10^3/ul Granulocytes # Neutrophils # 4.6 10^3/ul Lymphocytes # 1.0 10^3/ul Monocytes # 0.7 10^3/ul Eosinophils # 0.3 10^3/ul Basophils # 0.0 10^3/ul Nucleated Red 0.0 10^3/ul Blood Cells # Sodium Level 137 mmol/L Potassium Level 5.0 mmol/L Chloride Level 92 mmol/L Carbon Dioxide 44 mmol/L Level Anion Gap 1 Blood Urea 23 mg/dl Nitrogen Creatinine 0.92 mg/dl Est Glomerular > 60 mL/min Filtrat Rate mL/min Glucose Level 128 mg/dl Hemoglobin A1c 6.1 % Calcium Level 8.6 mg/dl Total Bilirubin 0.2 mg/dl Direct 0.00 mg/dl Bilirubin Indirect 0.2 mg/dl Bilirubin Aspartate Amino 16 IU/L Transf (AST/SGO T) Alanine 14 IU/L Aminotransferas e (ALT/SGPT) Alkaline 45 IU/L Phosphatase Total Protein 6.8 g/dl Albumin 3.3 g/dl Globulin 3.50 g/dl Albumin/Globuli 0.94 n Ratio Assessment and Plan Recommendation/Plan Multiple antipsychotics: No Psychotherapy Provide supportive therapy Discharge Disposition: Other Legal Status: Voluntary (Does not meet criteria for 5150 hold) MAURICE POZO NP Sep 18, 2018 17:18
--- NOTE | 2018-09-18 19:45 | PN ---
Date/Time of Note Date/Time of Note DATE: 09/18/18 TIME: 19:45 Assessment/Plan VTE Prophylaxis Risk score (from Ns)>0 risk: 2 SCD applied (from Ns): No SCD contraindicated: other Pharmacological prophylaxis: NA/contraindicated Pharm contraindication: bleeding Lines/Catheters IV Catheter Type (from [facility]): Peripheral IV Urinary Cath still in place: No Assessment/Plan Hospital Course SUBJECTIVE: Denies any dysuria or hematuria. OBJECTIVE: Physical Exam General: Morbidly obese 53 year-old male lying in bed in no apparent distress. HEENT: Normocephalic, atraumatic. Eyes: Anicteric sclerae, conjunctivae clear. ENT: Nasal septum midline, oral mucosa moist. Neck: Short and obese. Respiratory: Bilaterally diminished breath sounds. No use of accessory muscles of respiration. B/L expiratory wheezing. Cardiovascular: S1, S2 heard. Regular rate and rhythm. Abdomen: Soft, nontender, and nondistended. Bowel sounds positive in all 4 quadrants. Genitourinary: Deferred. Extremities: No cyanosis. B/L LE edema. Peripheral pulses palpable. Neurologic: Cranial nerves II through XII grossly intact. The patient is awake, alert, and oriented. Labs & Vitals per chart ASSESSMENT & PLAN This is a 53-year-old male with comorbidities including morbid obesity, diastolic heart failure, and possible underlying COPD who came to the emergency room with chief complaint of hematuria. Therefore, the patient was admitted to inpatient setting for further treatment and evaluation. 1. Gross hematuria. -Etiology unclear. -Being followed by urology. -The patient's hematuria has currently cleared. -Urine cultures were sent for possible underlying urinary tract infection. Urine culture showing inconclusive results. -Await further urology recommendations. 2. Diastolic heart failure, chronic. -Continue diuresis. 3. Possible underlying COPD. - Start the patient on inhaled bronchodilators both BROOKLYNN and LABA. 4. Prediabetes -Hemoglobin A1c 6.1. -Will advise a low carbohydrate diet. 5. Morbid obesity. -BMI of more than 59 kg/m. -Weight reduction will be advised. 6. Fluids, electrolytes, and nutrition. -Low cholesterol diet. 7. DVT prophylaxis. -Contraindicated because of bilateral lower extremity edema. -Chemical chemoprophylaxis contraindicated because of hematuria. 8. Plan. -Continue diuresis. -Await further urology recommendations. The patient was seen in collaboration with Dr. Kerr. Result Diagram: 09/18/18 0607 09/18/18 0607 Results 24hrs Laboratory Tests Test 09/18/18 06:07 White Blood Count 6.6 Red Blood Count 4.19 L Hemoglobin 12.5 L Hematocrit 40.2 L Mean Corpuscular Volume 95.9 Mean Corpuscular Hemoglobin 29.8 Mean Corpuscular Hemoglobin Concent 31.1 L Red Cell Distribution Width 13.5 Platelet Count 142 Mean Platelet Volume 11.4 H Immature Granulocytes % 0.300 Neutrophils % 70.3 Lymphocytes % 14.5 L Monocytes % 10.4 Eosinophils % 3.9 Basophils % 0.6 Nucleated Red Blood Cells % 0.0 Immature Granulocytes # 0.020 Neutrophils # 4.6 Lymphocytes # 1.0 Monocytes # 0.7 Eosinophils # 0.3 Basophils # 0.0 Nucleated Red Blood Cells # 0.0 Sodium Level 137 Potassium Level 5.0 Chloride Level 92 L Carbon Dioxide Level 44 *H Anion Gap 1 #L Blood Urea Nitrogen 23 H Creatinine 0.92 Est Glomerular Filtrat Rate mL/min > 60 Glucose Level 128 Hemoglobin A1c 6.1 H Calcium Level 8.6 Total Bilirubin 0.2 Direct Bilirubin 0.00 Indirect Bilirubin 0.2 Aspartate Amino Transf (AST/SGOT) 16 Alanine Aminotransferase (ALT/SGPT) 14 Alkaline Phosphatase 45 Total Protein 6.8 Albumin 3.3 Globulin 3.50 H Albumin/Globulin Ratio 0.94 Exam/Review of Systems Exam Vitals Vital Signs Date Temp Pulse Resp B/P (MAP) Pulse Ox O2 O2 Flow FiO2 Time Delivery Rate 09/18/18 2.0 18:53 09/18/18 98.6 68 18 102/50 96 Nasal 14:09 (67) Cannula Intake and Output 09/17/18 09/17/18 09/18/18 1414:59 22:59 06:59 IntakeIntake Total 894 ml OutputOutput Total 2700 ml BalanceBalance -1806 ml Results Results 24hrs Laboratory Tests Test 09/18/18 06:07 White Blood Count 6.6 Red Blood Count 4.19 L Hemoglobin 12.5 L Hematocrit 40.2 L Mean Corpuscular Volume 95.9 Mean Corpuscular Hemoglobin 29.8 Mean Corpuscular Hemoglobin Concent 31.1 L Red Cell Distribution Width 13.5 Platelet Count 142 Mean Platelet Volume 11.4 H Immature Granulocytes % 0.300 Neutrophils % 70.3 Lymphocytes % 14.5 L Monocytes % 10.4 Eosinophils % 3.9 Basophils % 0.6 Nucleated Red Blood Cells % 0.0 Immature Granulocytes # 0.020 Neutrophils # 4.6 Lymphocytes # 1.0 Monocytes # 0.7 Eosinophils # 0.3 Basophils # 0.0 Nucleated Red Blood Cells # 0.0 Sodium Level 137 Potassium Level 5.0 Chloride Level 92 L Carbon Dioxide Level 44 *H Anion Gap 1 #L Blood Urea Nitrogen 23 H Creatinine 0.92 Est Glomerular Filtrat Rate mL/min > 60 Glucose Level 128 Hemoglobin A1c 6.1 H Calcium Level 8.6 Total Bilirubin 0.2 Direct Bilirubin 0.00 Indirect Bilirubin 0.2 Aspartate Amino Transf (AST/SGOT) 16 Alanine Aminotransferase (ALT/SGPT) 14 Alkaline Phosphatase 45 Total Protein 6.8 Albumin 3.3 Globulin 3.50 H Albumin/Globulin Ratio 0.94 Medications Medication Current Medications IV Flush (NS 3 ml) 3 ml PER PROTOCOL IV ; Start 09/17/18 at 19:30 Acetaminophen/ Hydrocodone Bitart ([place] (5/325)) 2 tab Q6H PRN PO .SEVERE PAIN 7-10; Start 09/17/18 at 19:30 Acetaminophen (Tylenol Tab) 650 mg Q4H PRN PO MILD PAIN LEVEL 1-3; Start 09/17 at 19:30 Famotidine (Pepcid) 20 mg DAILY PO Last administered on 09/18/18at 09:37; Admin Dose 20 MG; Start 09/18/18 at 09:00 Lisinopril (Zestril) 40 mg DAILY PO Last administered on 09/18/18at 09:37; Admin Dose 40 MG; Start 09/18/18 at 09:00 Furosemide (Lasix) 60 mg BID DIURETICS IV ; Start 09/18/18 at 18:39 LJ QUIROZ NP Sep 18, 2018 19:45
[2018-09-18] MEDS: FUROSEMIDE 20 MG INJ IV SCH (19:55)
[2018-09-18] MEDS ORDERED: ALBUTEROL/IPRATROPIUM (NEB) 3 ML AMP HHN PRN (20:00)
[2018-09-18] MEDS: ARFORMOTEROL TARTRATE 15MCG/2 ML AMP NEB SCH (20:00)
[2018-09-18 20:28] VITALS: BP 128/72; PULSE 77; RESP 18
[2018-09-18] MEDS: ALBUTEROL/IPRATROPIUM (NEB) 3 ML AMP HHN SCH (21:13)
[2018-09-18] MEDS: CEFTRIAXONE 1 GM/50 ML (PMX) 50 ML IVPB SCH (23:15)
[2018-09-18 23:30] VITALS: PULSE 67
[2018-09-19] VITALS (7 sets, daily range): BP systolic 107–142; BP diastolic 51–59; PULSE 52–66; RESP 20
[2018-09-19] MEDS: FUROSEMIDE 20 MG INJ IV SCH ×2 (05:45→17:18)
--- NOTE | 2018-09-19 06:13 | PN ---
Date/Time of Note Date/Time of Note DATE: 09/19/18 TIME: 06:13 Assessment/Plan VTE Prophylaxis Risk score (from Ns)>0 risk: 2 SCD applied (from Ns): Yes Pharmacological prophylaxis: NA/contraindicated Pharm contraindication: bleeding Lines/Catheters [facility] [place] Lock Urinary Cath still in place: No Assessment/Plan Hospital Course SUBJECTIVE: Denies any dysuria or hematuria. OBJECTIVE: Physical Exam General: Morbidly obese 53 year-old male lying in bed in no apparent distress. HEENT: Normocephalic, atraumatic. Eyes: Anicteric sclerae, conjunctivae clear. ENT: Nasal septum midline, oral mucosa moist. Neck supple. Respiratory: Bilaterally diminished breath sounds. No use of accessory muscles of respiration. B/L expiratory wheezing. Cardiovascular: S1, S2 heard. Regular rate and rhythm. Abdomen: Soft, nontender, and nondistended. Bowel sounds positive in all 4 quadrants. Genitourinary: Deferred. Extremities: No cyanosis. B/L LE edema. Peripheral pulses palpable. Neurologic: Cranial nerves II through XII grossly intact. The patient is awake, alert, and oriented. Labs & Vitals per chart ASSESSMENT & PLAN This is a 53-year-old male with comorbidities including morbid obesity, kassie stolic heart failure, and possible underlying COPD who came to the emergency room with chief complaint of hematuria. Therefore, the patient was admitted to inpatient setting for further treatment and evaluation. 1. Gross hematuria. -Etiology unclear. -Being followed by urology. -The patient's hematuria has currently cleared. -Urine cultures were sent for possible underlying urinary tract infection. Urine culture showing Enterococcus and alpha hemolytic Streptococci. On antimicrobials. -Await further urology recommendations. 2. Diastolic heart failure, chronic. -Continue diuresis. 3. Possible underlying COPD. - Start the patient on inhaled bronchodilators both BROOKLYNN and LABA. 4. Prediabetes -Hemoglobin A1c 6.1. -Will advise a low carbohydrate diet. 5. Morbid obesity. -BMI of more than 59 kg/m. -Weight reduction will be advised. 6. Obesity hypoventilation. -NIPPV as needed. 7. Fluids, electrolytes, and nutrition. -Low cholesterol diet. 8. DVT prophylaxis. -B/L SCDs. -Chemical chemoprophylaxis contraindicated because of hematuria. 9. Plan. -Continue diuresis and antimicrobials. -Await further urology recommendations. The patient was in collaboration with Dr. Kerr. Result Diagram: 09/19/18 0500 09/18/18 0607 Results 24hrs Laboratory Tests Test 09/19/18 05:00 White Blood Count 5.4 Red Blood Count 4.10 L Hemoglobin 12.0 L Hematocrit 39.3 L Mean Corpuscular Volume 95.9 Mean Corpuscular Hemoglobin 29.3 Mean Corpuscular Hemoglobin Concent 30.5 L Red Cell Distribution Width 13.6 Platelet Count 149 Mean Platelet Volume 11.9 H Immature Granulocytes % 0.400 Neutrophils % 58.8 Lymphocytes % 20.1 Monocytes % 15.3 H Eosinophils % 5.0 Basophils % 0.4 Nucleated Red Blood Cells % 0.0 Immature Granulocytes # 0.020 Neutrophils # 3.2 Lymphocytes # 1.1 Monocytes # 0.8 Eosinophils # 0.3 Basophils # 0.0 Nucleated Red Blood Cells # 0.0 Exam/Review of Systems Exam Vitals Vital Signs Date Temp Pulse Resp B/P (MAP) Pulse Ox O2 O2 Flow FiO2 Time Delivery Rate 09/19/18 58 92 40 03:05 09/19/18 98.2 20 142/59 02:05 (86) 09/18/18 Nasal 5.0 21:18 Cannula Intake and Output 09/18/18 09/18/18 09/19/18 1515:00 23:00 07:00 IntakeIntake Total 460 ml 480 ml 480 ml OutputOutput Total 2500 ml 400 ml 200 ml BalanceBalance -2040 ml 80 ml 280 ml Results Results 24hrs Laboratory Tests Test 09/19/18 05:00 White Blood Count 5.4 Red Blood Count 4.10 L Hemoglobin 12.0 L Hematocrit 39.3 L Mean Corpuscular Volume 95.9 Mean Corpuscular Hemoglobin 29.3 Mean Corpuscular Hemoglobin Concent 30.5 L Red Cell Distribution Width 13.6 Platelet Count 149 Mean Platelet Volume 11.9 H Immature Granulocytes % 0.400 Neutrophils % 58.8 Lymphocytes % 20.1 Monocytes % 15.3 H Eosinophils % 5.0 Basophils % 0.4 Nucleated Red Blood Cells % 0.0 Immature Granulocytes # 0.020 Neutrophils # 3.2 Lymphocytes # 1.1 Monocytes # 0.8 Eosinophils # 0.3 Basophils # 0.0 Nucleated Red Blood Cells # 0.0 Medications Medication Current Medications IV Flush (NS 3 ml) 3 ml PER PROTOCOL IV ; Start 09/17/18 at 19:30 Acetaminophen/ Hydrocodone Bitart ([place] (5/325)) 2 tab Q6H PRN PO .SEVERE PAIN 7-10; Start 09/17/18 at 19:30 Acetaminophen (Tylenol Tab) 650 mg Q4H PRN PO MILD PAIN LEVEL 1-3; Start 09/17/18 at 19:30 Famotidine (Pepcid) 20 mg DAILY PO Last administered on 09/18/18 09:37; Admin Dose 20 MG; Start 09/18/18 at 09:00 Lisinopril (Zestril) 40 mg DAILY PO Last administered on 09/18/18 09:37; Admin Dose 40 MG; Start 09/18/18 at 09:00 Furosemide (Lasix) 60 mg BID DIURETICS IV Last administered on 09/19/18 05:45; Admin Dose 60 MG; Start 09/18/18 at 18:39 Albuterol/ Ipratropium (Duoneb) 3 ml Q6HWA RESP THERAPY HHN Last administered on 09/18/18 21:13; Admin Dose 3 ML; Start 09/18/18 at 20:00 Albuterol/ Ipratropium (Duoneb) 3 ml Q2H RESP THERAPY PRN HHN SHORTNESS OF BREATH; Start 09/18/18 at 20:00 Arformoterol Tartrate (Brovana (Neb)) 2 ml BID RESP THERAPY NEB ; Start 09/18/18 at 20:00 Simethicone (Mylicon) 80 mg Q6H PRN PO DISTENSION/GAS/BLOATING; Start 09/18/18 at 22:00 Psyllium Hydrophilic Mucilloid (Metamucil) 1 pkt BID PO ; Start 09/19/18 at 09:00 Ceftriaxone Sodium 50 ml @ 100 mls/hr Q24H IVPB Last administered on 09/18/18at 23:15; Admin Dose 100 MLS/HR; Start 09/18/18 at 22:00 LJ QUIROZ NP Sep 19, 2018 06:13
[2018-09-19] MEDS: ALBUTEROL/IPRATROPIUM (NEB) 3 ML AMP HHN SCH ×3 (08:19→20:24)
[2018-09-19] MEDS: ARFORMOTEROL TARTRATE 15MCG/2 ML AMP NEB SCH ×2 (08:19→20:24)
--- NOTE | 2018-09-19 08:28 | CONS ---
Consult Date/Type/Reason Admit Date/Time Sep 17, 2018 at 17:33 Initial Consult Date 09/17/18 Type of Consultation: Urology Reason for Consultation Hematuria Requesting Provider: JOHNY PAGE MD Date/Time of Note DATE: 09/19/18 TIME: 08:22 Subjective The patient is awake and comfortable. He reports only one drop of blood when he wipes the tip of the penis. Objective Vitals Vital Signs Date Temp Pulse Resp B/P (MAP) Pulse Ox O2 O2 Flow FiO2 Time Delivery Rate 09/19/18 98.7 52 20 107/53 96 Nasal 07:27 (71) Cannula 09/19/18 40 03:05 09/18/18 5.0 21:18 Intake and Output 09/18/18 09/18/18 09/19/18 1515:00 23:00 07:00 IntakeIntake Total 460 ml 480 ml 720 ml OutputOutput Total 2500 ml 400 ml 1600 ml BalanceBalance -2040 ml 80 ml -880 ml Exam Very obese abdomen. No tenderness. Urine culture URINE CULTURE Preliminary Organism 1 MIXED GRAM POSITIVE ORGANISMS COLONY COUNT >100,000 CFU/ml Results/Medications Result Diagram: 09/19/18 0500 09/19/18 0500 Results 24 hrs Laboratory Tests Test 09/19/18 05:00 White Blood Count 5.4 Red Blood Count 4.10 L Hemoglobin 12.0 L Hematocrit 39.3 L Mean Corpuscular Volume 95.9 Mean Corpuscular Hemoglobin 29.3 Mean Corpuscular Hemoglobin Concent 30.5 L Red Cell Distribution Width 13.6 Platelet Count 149 Mean Platelet Volume 11.9 H Immature Granulocytes % 0.400 Neutrophils % 58.8 Lymphocytes % 20.1 Monocytes % 15.3 H Eosinophils % 5.0 Basophils % 0.4 Nucleated Red Blood Cells % 0.0 Immature Granulocytes # 0.020 Neutrophils # 3.2 Lymphocytes # 1.1 Monocytes # 0.8 Eosinophils # 0.3 Basophils # 0.0 Nucleated Red Blood Cells # 0.0 Sodium Level 137 Potassium Level 4.6 Chloride Level 89 L Carbon Dioxide Level 40 H Anion Gap 8 Blood Urea Nitrogen 24 H Creatinine 0.82 Est Glomerular Filtrat Rate mL/min > 60 Glucose Level 122 Calcium Level 8.7 Phosphorus Level 3.5 Magnesium Level 2.2 Triglycerides Level 60 Cholesterol Level 111 LDL Cholesterol, Calculated 65 HDL Cholesterol 34 Cholesterol/HDL Ratio 3.2 Urine culture URINE CULTURE Preliminary Organism 1 MIXED GRAM POSITIVE ORGANISMS COLONY COUNT >100,000 CFU/ml Home Meds Active Scripts Tramadol HCl (Tramadol HCl) 50 Mg Tablet, 50 MG PO Q4 PRN for PAIN, #20 TAB Prov:ENDER MARTIN S. 09/17/18 Cephalexin* (Keflex*) 500 Mg Capsule, 500 MG PO QID for 5 Days, CAP Prov:MARIOENDER S. 09/17/18 Acetaminophen* (Tylophen*) 500 Mg Capsule, 1 CAP PO Q6H PRN for PAIN AND OR ELEVATED TEMP, #20 CAP Prov:TRACEY LOCKETT INSTRUCTIONAL MATERIALS DIRECTOR 02/07/18 Cephalexin* (Keflex*) 500 Mg Capsule, 500 MG PO QID for 7 Days, CAP Prov:ROSELIA JOHNSON S. 07/25/14 Sulfamethoxazole-Trimethoprim* (Bactrim* DS) 800-160 Mg Tab, 1 TAB PO BID for 7 Days, TAB Prov:ROSELIA JOHNSON S. 07/25/14 Reported Medications Psyllium Seed (with Sugar) (Metamucil Powder) 575 Gm Powder, 575 GM PO DAILY PRN for CONSTIPATION 09/18/18 Famotidine* (Pepcid* AC) 20 Mg Tablet, 20 MG PO DAILY, #30 TAB 09/17/18 Acetaminophen* (Tylenol*) 325 Mg Tablet, 650 MG PO Q4H PRN for MILD PAIN LEVEL 1-3, TAB 09/17/18 Lisinopril* (Lisinopril*) 40 Mg Tablet, 40 MG PO DAILY, #30 TAB 09/17/18 Furosemide* (Lasix*) 20 Mg Tablet, 60 MG PO DAILY, TAB 09/17/18 Medications Current Medications IV Flush (NS 3 ml) 3 ml PER PROTOCOL IV ; Start 09/17/18 at 19:30 Acetaminophen/ Hydrocodone Bitart ([place] (5/325)) 2 tab Q6H PRN PO .SEVERE PAIN 7-10; Start 09/17/18 at 19:30 Acetaminophen (Tylenol Tab) 650 mg Q4H PRN PO MILD PAIN LEVEL 1-3; Start 09/17/18 at 19:30 Famotidine (Pepcid) 20 mg DAILY PO Last administered on 09/18/18 09:37; Admin Dose 20 MG; Start 09/18/18 at 09:00 Lisinopril (Zestril) 40 mg DAILY PO Last administered on 09/18/18 09:37; Admin Dose 40 MG; Start 09/18/18 at 09:00 Furosemide (Lasix) 60 mg BID DIURETICS IV Last administered on 09/19/18 05:45; Admin Dose 60 MG; Start 09/18/18 at 18:39 Albuterol/ Ipratropium (Duoneb) 3 ml Q6HWA RESP THERAPY HHN Last administered on 09/19/18 08:19; Admin Dose 3 ML; Start 09/18/18 at 20:00 Albuterol/ Ipratropium (Duoneb) 3 ml Q2H RESP THERAPY PRN HHN SHORTNESS OF BREATH; Start 09/18/18 at 20:00 Arformoterol Tartrate (Brovana (Neb)) 2 ml BID RESP THERAPY NEB Last administered on 09/19/18 08:19; Admin Dose 2 ML; Start 09/18/18 at 20:00 Simethicone (Mylicon) 80 mg Q6H PRN PO DISTENSION/GAS/BLOATING; Start 09/18/18 at 22:00 Psyllium Hydrophilic Mucilloid (Metamucil) 1 pkt BID PO ; Start 09/19/18 at 09:00 Ceftriaxone Sodium 50 ml @ 100 mls/hr Q24H IVPB Last administered on 09/18/18 23:15; Admin Dose 100 MLS/HR; Start 09/18/18 at 22:00 Assessment/Plan Hospital Course (Demo Recall) 53-year-old male, morbidly obese, weighs 450 pounds, presented to the emergency room 2 days ago with gross hematuria and was discharged home to return again with the same problem yesterday and again he was discharged after he had a Simon catheter inserted at the bladder irrigated. He returned again on 09/17/2018 because of the gross hematuria. Patient states that it was painful when he had the hematuria. He denies any similar problem in the past. He denies any urgency or urgency incontinence. His gross hematuria may be related to urinary tract infection. Urine culture did show URINE CULTURE Preliminary Organism 1 MIXED GRAM POSITIVE ORGANISMS COLONY COUNT >100,000 CFU/ml I did talk to the microbiology tech and they will do sensitivity. Patient may be discharged home on Cipro for 10 days with instructions that he should go and see his medical doctor at [facility] and have his doctor referred him to urologist for cystoscopy to make sure he has no bladder tumor. KENYON LÓPEZ MD Sep 19, 2018 08:28
[2018-09-19] MEDS: LISINOPRIL 20 MG TAB PO SCH (08:56)
[2018-09-19] MEDS: FAMOTIDINE 20 MG TAB PO SCH (08:57)
[2018-09-19] MEDS: PSYLLIUM 28% PACKET PO SCH ×2 (08:57→20:47)
[2018-09-19] MEDS: HYDROCODONE/APAP (5/325) TAB PO PRN ×2 (09:04→17:10)
[2018-09-19] MEDS ORDERED: AMOX500C2 PO (15:19)
[2018-09-19] MEDS ORDERED: ALBU8.5H8 INH (15:21)
[2018-09-19] MEDS ORDERED: ADV25050 INHALATION (15:21)
--- NOTE | 2018-09-19 15:23 | PDOCDIS ---
Discharge Instructions CONDITION [id number] Patient Condition: [id number] Stable HOME CARE INSTRUCTIONS: [id number] Diet Instructions: [id number] Low Fat /Cholesterol FOLLOW UP/APPOINTMENTS Follow-up Plan [facility]. OTHER ORDERS: Other Orders: 1. Resume home medications. 2. Complete the course of antibiotics. 3. Please follow-up with all review [facility] and have him review [facility] arrange for outpatient urology follow-up including cystoscopy. 4. Follow a low-cholesterol, preferably low carbohydrate diet. 5. Resume activities as tolerated. 6. Please go to the nearest emergency room if he has significant blood in urine, persistent fevers, or any other unusual signs/symptoms. LJ QUIROZ NP Sep 19, 2018 15:23
--- NOTE | 2018-09-19 15:25 | DS ---
Date/Time of Note Date/Time of Note Discharge Summary Admission/Discharge Info Admit Date/Time Discharge Date/Time Home Meds Active Scripts Tramadol HCl (Tramadol HCl) 50 Mg Tablet, 50 MG PO Q4 PRN for PAIN, #20 TAB Prov:ENDER MARTIN S. 09/17/18 Cephalexin* (Keflex*) 500 Mg Capsule, 500 MG PO QID for 5 Days, CAP Prov:ENDER MARTIN S. 09/17/18 Acetaminophen* (Tylophen*) 500 Mg Capsule, 1 CAP PO Q6H PRN for PAIN AND OR ELEVATED TEMP, #20 CAP Prov:TRACEY LOCKETT AIR INTELLIGENCE SPECIALIST 02/07/18 Cephalexin* (Keflex*) 500 Mg Capsule, 500 MG PO QID for 7 Days, CAP Prov:ROSELIA JOHNSON S. 07/25/14 Sulfamethoxazole-Trimethoprim* (Bactrim* DS) 800-160 Mg Tab, 1 TAB PO BID for 7 Days, TAB Prov:ROSELIA JOHNSON S. 07/25/14 Reported Medications Psyllium Seed (with Sugar) (Metamucil Powder) 575 Gm Powder, 575 GM PO DAILY PRN for CONSTIPATION 09/18/18 Famotidine* (Pepcid* AC) 20 Mg Tablet, 20 MG PO DAILY, #30 TAB 09/17/18 Acetaminophen* (Tylenol*) 325 Mg Tablet, 650 MG PO Q4H PRN for MILD PAIN LEVEL 1-3, TAB 09/17/18 Lisinopril* (Lisinopril*) 40 Mg Tablet, 40 MG PO DAILY, #30 TAB 09/17/18 Furosemide* (Lasix*) 20 Mg Tablet, 60 MG PO DAILY, TAB 09/17/18 Follow-up Plan [facility]. Primary Care Provider [facility] Pending Labs Laboratory Tests Test 09/19/18 05:00 White Blood Count 5.4 10^3/ul (4.8-10.8) Red Blood Count 4.10 10^6/ul (4.70-6.10) Hemoglobin 12.0 g/dl (14.0-18.0) Hematocrit 39.3 % (42.0-52.0) Mean Corpuscular Volume 95.9 fl (82.0-101.0) Mean Corpuscular Hemoglobin 29.3 pg (29.0-33.0) Mean Corpuscular Hemoglobin Concent 30.5 g/dl (32.0-37.0) Red Cell Distribution Width 13.6 % (11.5-14.5) Platelet Count 149 10^3/UL (140-415) Mean Platelet Volume 11.9 fl (7.4-10.4) Immature Granulocytes % 0.400 % (0.001-0.429) Neutrophils % 58.8 % (39.0-77.0) Lymphocytes % 20.1 % (15.0-51.0) Monocytes % 15.3 % (0.0-11.0) Eosinophils % 5.0 % (0.0-7.0) Basophils % 0.4 % (0.0-2.0) Nucleated Red Blood Cells % 0.0 /100WBC (0.0-0.0) Immature Granulocytes # 0.020 10^3/ul (0.0-0.031) Neutrophils # 3.2 10^3/ul (1.6-7.5) Lymphocytes # 1.1 10^3/ul (0.8-2.9) Monocytes # 0.8 10^3/ul (0.3-0.9) Eosinophils # 0.3 10^3/ul (0.0-0.5) Basophils # 0.0 10^3/ul (0.0-0.1) Nucleated Red Blood Cells # 0.0 10^3/ul (0.0-0.0) Sodium Level 137 mmol/L (135-144) Potassium Level 4.6 mmol/L (3.5-5.1) Chloride Level 89 mmol/L (97-110) Carbon Dioxide Level 40 mmol/L (21-31) Anion Gap 8 (5-13) Blood Urea Nitrogen 24 mg/dl (7-20) Creatinine 0.82 mg/dl (0.61-1.24) Est Glomerular Filtrat Rate mL/min > 60 mL/min (>60) Glucose Level 122 mg/dl (70-220) Calcium Level 8.7 mg/dl (8.4-10.2) Phosphorus Level 3.5 mg/dl (2.5-4.9) Magnesium Level 2.2 mg/dl (1.7-2.5) Triglycerides Level 60 mg/dl (0-149) Cholesterol Level 111 mg/dl (100-200) LDL Cholesterol, Calculated 65 mg/dl HDL Cholesterol 34 mg/dl (28-71) Cholesterol/HDL Ratio 3.2 RATIO LJ QUIROZ NP Sep 19, 2018 15:25
[2018-09-19] MEDS: CEFTRIAXONE 1 GM/50 ML (PMX) 50 ML IVPB SCH (22:00)
[2018-09-20 02:00] VITALS: BP 108/60; PULSE 60; RESP 20
[2018-09-20] MEDS: FUROSEMIDE 20 MG INJ IV SCH ×2 (06:30→18:11)
[2018-09-20 07:57] VITALS: BP 109/53; PULSE 60; RESP 20
[2018-09-20] MEDS: PSYLLIUM 28% PACKET PO SCH (08:38)
[2018-09-20] MEDS: LISINOPRIL 20 MG TAB PO SCH (08:39)
[2018-09-20] MEDS: FAMOTIDINE 20 MG TAB PO SCH (08:39)
[2018-09-20] MEDS: ARFORMOTEROL TARTRATE 15MCG/2 ML AMP NEB SCH ×2 (08:43→19:43)
[2018-09-20] MEDS: ALBUTEROL/IPRATROPIUM (NEB) 3 ML AMP HHN SCH ×3 (08:43→19:35)
[2018-09-20] MEDS: HYDROCODONE/APAP (5/325) TAB PO PRN (09:08)
--- NOTE | 2018-09-20 11:31 | DS ---
Date/Time of Note Date/Time of Note DATE: 09/20/18 TIME: 11:28 Discharge Summary Admission/Discharge Info Admit Date/Time Sep 17, 2018 at 17:33 Discharge Date/Time Discharge Diagnosis 1. Gross hematuria. 2. Urinary tract infection. 3. Diastolic heart failure, chronic. 4. Possible underlying COPD. 5. Prediabetes. Hemoglobin A1c 6.1. 6. Morbid obesity. BMI of more than 59 kg/m. 7. Obesity hypoventilation. Patient Condition: Stable Consults 1. Bryson Goss MD, Urology. Procedures 2D Echocardiogram Conclusions: Normal left ventricular systolic function. Normal left ventricular wall thickness. Mild enlargement of left ventricle cavity. Ejection fraction is visually estimated at 55 %. Mild mitral leaflet calcification. Mild mitral annular calcification. Trace mitral regurgitation. Normal appearance of the tricuspid valve. Estimated peak PA systolic pressure 32 mmHg. There is mild tricuspid regurgitation. Hx of Present Illness This is a 53-year-old male with comorbidities including morbid obesity, diastolic heart failure, and possible underlying COPD who came to the emergency room with chief complaint of hematuria. Therefore, the patient was admitted to inpatient setting for further treatment and evaluation. Hospital Course A urology consult was obtained. The patient's urine study including urine culture was sent. The patient's urine culture showed Enterococcus species and alpha hemolytic Strep species. The patient was maintained on appropriate antimicrobials. The patient was initially tentatively scheduled for a cystoscopy because of gross hematuria. However, the patient's hematuria resolved. The patient's hematuria could have been probably secondary to underlying urinary tract infection. The patient needs eventual cystoscopic evaluation as outpatient. The patient's hematuria has completely resolved and there is no emergent need for any inpatient cystoscopy. The patient should follow-up with his primary care physician and have outpatient urology follow-up for elective cystoscopy. The patient has underlying diastolic heart failure. The patient was maintained on diuretic therapy. The patient has underlying COPD. The patient used to be a smoker from age 13. The patient has quit smoking for many years now. The patient most likely has underlying COPD. The patient had evidence of bronchospasms. The patient was maintained on inhaled bronchodilators both BR[place]NN and LABA. The patient was noticed to be prediabetic with a hemoglobin A1c of 6.1. The patient was advised on a low carbohydrate diet. The patient has underlying obesity hypoventilation syndrome. The patient needs outpatient polysomnography to further evaluate for any underlying obstructive sleep apnea. The patient is morbidly obese with a BMI of 59 kg/m square. The patient was advised on weight reduction. The patient was cleared by urology to be discharged home, to be followed up with outpatient urology. Discharge Instructions 1. Resume home medications. 2. Complete the course of antibiotics. 3. Please follow-up with [facility] and have [facility] arrange for outpatient urology follow-up including cystoscopy. 4. Follow a low-cholesterol, preferably low carbohydrate diet. 5. Resume activities as tolerated. 6. Please go to the nearest emergency room if you have significant blood in urine, persistent fevers, or any other unusual signs/symptoms. The patient verbalized understanding of his discharge instructions. At this time I would like to thank Dr. Goss for seeing the patient and providing clinical recommendations. The patient was seen in collaboration with Dr. Kerr. Home Meds Active Scripts Albuterol Sulfate* (Proair HFA*) 8.5 Gm Hfa.aer.ad, 2 PUFF INH Q4 for sob, #1 INHALER Prov:LJ QUIROZ LEADERSHIP DEVELOPMENT INSTRUCTOR 09/19/18 Salmeterol Xinaf/Fluticasone* (Advair*) 250-50 Diskus Inhaler, 1 INH INHALATION BID, #1 INHALER Prov:LJ QUIROZ [employer]ADER[employer] DEVELOPMENT INSTRUCTOR 09/19/18 Amoxicillin* (Amoxicillin*) 500 Mg Cap, 500 MG PO Q8 for 10 Days, #30 CAP Prov:LJ QUIROZ LEADERSHIP DEVELOPMENT INSTRUCTOR 09/19/18 Reported Medications Psyllium Seed (with Sugar) (Metamucil Powder) 575 Gm Powder, 575 GM PO DAILY PRN for CONSTIPATION 09/18/18 Famotidine* (Pepcid* AC) 20 Mg Tablet, 20 MG PO DAILY, #30 TAB 09/17/18 Lisinopril* (Lisinopril*) 40 Mg Tablet, 40 MG PO DAILY, #30 TAB 09/17/18 Furosemide* (Lasix*) 20 Mg Tablet, 60 MG PO DAILY, TAB 09/17/18 Discontinued Reported Medications Acetaminophen* (Tylenol*) 325 Mg Tablet, 650 MG PO Q4H PRN for MILD PAIN LEVEL 1-3, TAB 09/17/18 Discontinued Scripts Tramadol HCl (Tramadol HCl) 50 Mg Tablet, 50 MG PO Q4 PRN for PAIN, #20 TAB Prov:ENDER MARTIN S. 09/17/18 Cephalexin* (Keflex*) 500 Mg Capsule, 500 MG PO QID for 5 Days, CAP Prov:MOGHADAM,ENDER S. 09/17/18 Acetaminophen* (Tylophen*) 500 Mg Capsule, 1 CAP PO Q6H PRN for PAIN AND OR ELEVATED TEMP, #20 CAP Prov:TRACEY LOCKETT NP 02/07/18 Cephalexin* (Keflex*) 500 Mg Capsule, 500 MG PO QID for 7 Days, CAP Prov:RAYONYROSELIA S. 07/25/14 Sulfamethoxazole-Trimethoprim* (Bactrim* DS) 800-160 Mg Tab, 1 TAB PO BID for 7 Days, TAB Prov:RAHIROSELIA S. 07/25/14 Follow-up Plan [facility]. Primary Care Provider [facility] Time spent on discharge: > 30 minutes Pending Labs RUN DATE: 09/20/18 [facility] PAGE 1 RUN TIME: [id number] [place] [address] Babatunde Bonner M.D. Agent Telegrapher Marcelo Abbasi M.D. Co-Agent Telegrapher CRISSY#: [id number] Name: TAZ YUAN Age/Sex: 53/M Attend Dr: STEVEN LARSON MD Acct: [id number] MR# : [id number] : 1965 Location: [facility] 2285-[id number] Admit: 09/17/18 Specimen: [id number] Status: Complete Jere: 09/17/18 Rcvd: 09/17/18 Source: [facility] U Sp Descrip: --- Procedure Result Microbiology URINE CULTURE Final Organism 1 ENTEROCOCCUS SPECIES COLONY COUNT 50,000 - 60,000 CFU/ml Organism 2 ALPHA HEMOLYTIC STREP SPP COLONY COUNT >100,000 CFU/ml . VIRIDANS GROUP ALPHA HEMOLYTIC STREP SPP: Susceptibilities previously reported, see prior culture report of same specimen site. ENT SPS M.I.C. RX --------- --- AMPICILLIN <=2 S CIPROFLOXACIN 1 S LEVOFLOXACIN 1 S NITROFURANTOIN <=16 S PENICILLIN-G 4 S VANCOMYCIN 2 S ..................................................................................... ....... Flags: Critical Hi = *H Critical Lo = *L Microbiology Abnormal = * Abnormal Hi = H Abnormal Lo = L Blood Bank Abnormal = * Susceptability Flags: S = Sensitive R = Resistant I = Intermediate END OF REPORT LJ QUIROZ NP Sep 20, 2018 11:31
[2018-09-20 20:00] VITALS: BP 130/67; PULSE 72; RESP 19
== END 2018-09-20 20:32 | disposition home or self-care (01) | DRG 696 ==
LOC: E/R 14:14 → 2NE 17:33
PROVIDERS: ADMIT Internal Medicine; ATTEND Internal Medicine
DX: R31.0 Gross hematuria (principal); I50.32 Chronic diastolic (congestive) heart failure; J96.11 Chronic respiratory failure with hypoxia; Z68.43 Body mass index [BMI] 50.0-59.9, adult; N39.0 Urinary tract infection, site not specified; Z99.81 Dependence on supplemental oxygen; E11.8 Type 2 diabetes mellitus with unspecified complications; E66.01 Morbid (severe) obesity due to excess calories; J44.9 Chronic obstructive pulmonary disease, unspecified; R73.03 Prediabetes; B95.2 Enterococcus as the cause of diseases classified elsewhere; B95.4 Other streptococcus as the cause of diseases classified elsewhere
CPT/HCPCS: 36600; 71046; 80048; 80053; 80061; 81001; 81003; 82803; 83036; 83735; 84100; 85025; 85610; 85730; 87086; 88104; 93306; 94640; 94660; 94664; J0696; J1940